=== PATIENT | female | born 1945 ===

== ENCOUNTER → 2024-06-16 14:16 | Outpatient (REF) | payer MEDICARE, OTHER, SELFPAY | LOC: HWRAD 14:16 | PROVIDERS: ATTENDING PHYSICIAN Nurse Practitioner | DX: M25.562 Pain in left knee (principal) | CPT/HCPCS: 73564 ==

== ENCOUNTER 2024-06-20 09:33 | Emergency (ER) | payer MEDICARE, OTHER, SELFPAY ==
[2024-06-20 09:42] VITALS: BP 111/67
[2024-06-20 10:01] VITALS: BMI 28.7
--- NOTE | 2024-06-20 11:21 | ED.MUSCINJ ---
HPI-Injury
General
Chief Complaint: Musculo-Skeletal Complaint
Source: patient
Exam Limitations: none
Time Seen by Provider: 06/20/24 11:06
History of Present Illness-Injury
Initial Injury comments:
78-year-old female presents with progressively worsening left knee pain over the past week to 10 days. She had an x-ray done as an outpatient which demonstrated arthritis and a small effusion. She denies any injury. She denies a fever. She could
not get into an appointment until the end of June. She tried Aleve with minimal relief. She typically does not use a cane or a walker. She is not on any blood thinners. No other complaints at this time.
Phy Exam
Physical Exam
Physical Exam:
General: Well-appearing female no acute respiratory distress
Musculoskeletal exam: Left knee tender medially and posteriorly. There is a small effusion noted on exam able to straight leg raise. She has full extension flexion to about 90 degrees. Knee is stable to ligament exam
Skin is without any wound or erythema
Injury Course
Orders/Labs/Results
Orders:
Orders
06/20/24 12:00
Triamcinolone Acetonide [Kenalog-10] 10 mg INTRAARTIC NOW STA
MDM/Problems Addressed
Differential Diagnosis Includes:
Left knee discomfort. I personally visualized x-rays of the knee that were taken 4 days ago which demonstrate mild to moderate degenerative change with small effusion. I suspect pain is from a flare of her arthritis. Clinical exam not consistent
with septic arthritis. No traumatic injury. There is no fractures noted on x-ray. Patient quite a bit of pain and has appoint with her joint doctor in 5 weeks. Had discussion with patient and family. They requested cortisone injection which I
explained the risks of they were aware but they were still in agreement.
*Critical Care Note
Total Time (30-74mins, 75-104mins- exclusive of procedures): Not Applicable
Update Note
Update Note:
The left knee was sterilely prepped with Betadine anesthetized in a local fashion using 1% lidocaine. The left knee was aspirated and approximately 2 mL of clear fluid was aspirated. The knee then through the same needle was injected with 2 mL of
1% lidocaine, 2 mL of 0.5% Marcaine and 2 mL of Kenalog intra-articular injection. This went in easily without resistance. The wound was dressed with gauze and tape. She will continue anti-inflammatories by mouth at home. Stable for discharge
ED Attending Note
-
Portions of this chart may have been created with voice recognition software.� Occasional wrong word or��sound alike� substitutions may have occurred due to the inherent limitations of voice recognition software.
Discharge Plan
Departure
Patient Disposition: Home (Routine Discharge)
Date of Disposition: 06/20/24
Time of Disposition: 12:36
Patient with high blood pressure during this ER visit?: No
Discharge Problem:
DJD (degenerative joint disease)
Instructions: Muscle and Bone Pain (DC)
Referrals:
Annika Moran CRNP [Family Provider] -
Activity Restrictions/Additional Instructions:
Consider using cane for ambulation. Rest. Continue with Tylenol or ibuprofen for pain. Follow-up with your orthopedic provider as planned.
Interventions
Interventions:
*Risk Screen - Suicide Last Done: 06/20/24 10:05
*General Assessment Last Done: 06/20/24 10:02
*Neglect/Abuse Screening Last Done: 06/20/24 10:02
ED- Fall Risk Assessment Last Done: 06/20/24 10:01
*ED COVID-19 Vaccine History Last Done: 06/20/24 10:01
ED-Musculoskeletal Assessment Last Done: 06/20/24 10:06
Discharge Date and Time
Print Language: IRISH
[2024-06-20] MEDS: KENALOG-10 10 MG INTRAARTIC (12:10)
[2024-06-20 12:48] VITALS: BP 130/98
== END 2024-06-20 12:49 | disposition home or self-care (01) ==
LOC: EMR 09:33
PROVIDERS: EMERGENCY PHYSICIAN Emergency Medicine; FAMILY PHYSICIAN Nurse Practitioner
DX: M19.90 Unspecified osteoarthritis, unspecified site (principal)
CPT/HCPCS: 99283; 20610

== ENCOUNTER 2025-01-11 06:36 | Day surgery (SDC) | payer MEDICARE, OTHER, SELFPAY ==
[2024-12-24 11:29] LABS: Hematocrit 43.7 % (37.0-47.0); Hemoglobin 14.3 g/dL (12.0-16.0); Mean Corp Hgb Conc. 32.7 g/dL (33.0-37.0); Mean Corpuscular Hgb 26.4 pg (27.0-31.0); Mean Corpuscular Volume 80.8 fL (81.0-99.0); Mean Platelet Volume 9.8 fL (7.4-10.4); Platelet Count 302 10^3/uL (130-400); Red Blood Cell Count 5.41 10^6/uL (4.20-5.40); Red Cell Dist. Width 13.5 % (11.5-14.5); White Blood Cell Count 9.6 10^3/uL (4.8-10.8)
[2024-12-24 11:30] LABS: ALT (SGPT) 24 U/L (0-35); AST (SGOT) 30 U/L (14-36); Albumin 4.2 g/dl (3.5-5.0); Alkaline Phosphatase 94 U/L (38-126); Blood Urea Nitrogen 27 mg/dl (7-17); Calcium 10.3 mg/dl (8.4-10.2); Carbon Dioxide 30 mmol/L (22-30); Chloride 94 mmol/L (98-107); Glucose 100 mg/dl (70-99); Sodium 134 mmol/L (135-145); Total Bilirubin 0.7 mg/dl (0.2-1.3); Total Protein 6.9 g/dl (6.3-8.2); eGFR 38.51
[2024-12-24 11:48] LABS: Glycohemoglobin (HgbA1c) 6.1 % (4.0-5.6)
[2024-12-24 14:12] VITALS: BMI 25.5
[2024-12-24 15:38] VITALS: BMI 25.5
--- NOTE | 2024-12-28 12:44 | VNURNOTE ---
Patient is scheduled for an elective L TKA on 01/11/25- she is a same day patient with Dr Hubbard. Spoke with patient prior to surgery. Introduced role of [facility] Liaison. Patient reports that she lives alone in a MULTI story home.
There are 6 steps to enter and a flight of steps to the second floor.
There is a powder room on the order entry representative and her son will be putting a recliner on that level for her. She has a shower chair and rolling walker.
PCP is Dr Jama Banegas.
Discussed [facility] joint protocol and post surgical plans.
Reviewed that she will have [facility] services initially and will then start outpatient PT.
Patient selects [facility] for her home care needs and will go to [facility] for outpatient PT. Date TBD. She will plan to schedule either 01/14 or 01/15. Patient confirms she has a Rx.
Patient is in agreement with plan and states that her son or daughter will be home with her. Advised to bring RW with her the day of surgery. [facility] referral placed in [facility].
Plan: [facility] per [facility] joint protocol 01/11 then outpt PT TBD.
--- NOTE | 2025-01-08 14:20 | PTCARENOTE ---
Patient had preop cardiac clearance- ECG report provide, no tracing available. Reviewed by Dr Davey- no additional interventions required
[2025-01-11] VITALS (32 sets, daily range): BP systolic 57–159; BP diastolic 27–95; PULSE 70; O2SAT 95; BMI 25.5
[2025-01-11] MEDS: MOBIC 15 MG PO (08:12)
[2025-01-11] MEDS: NORMOSOL-R/PLASMALYTE-A 1000 IV (08:12)
[2025-01-11] MEDS: TYLENOL 650 MG PO (08:12)
--- NOTE | 2025-01-11 12:49 | SUR.PHASEI ---
Patient arrival to PACU w/BP's <[address] Zabala to bedside to assess. OK with return to [facility] with BP<80's. Pre-Op BP noted to be 81/42
[2025-01-11] MEDS: ANCEF 5 IV (14:35)
[2025-01-11] MEDS: TYLENOL 1000 MG PO (14:36)
[2025-01-11] MEDS: ROXICODONE 5 MG PO (16:15)
== END 2025-01-11 17:10 | disposition home health service (06) ==
LOC: SDS 06:36
PROVIDERS: ATTENDING PHYSICIAN Specialist
DX: M17.12 Unilateral primary osteoarthritis, left knee (principal); M81.0 Age-related osteoporosis without current pathological fracture; N18.32 Chronic kidney disease, stage 3b; C73 Malignant neoplasm of thyroid gland; R73.03 Prediabetes
CPT/HCPCS: 27447; 36415; 73560; 80053; 83036; 85027; 87070; 97116; 97162; C1713; C1776

== ENCOUNTER → 2025-05-18 09:02 | Outpatient (REF) | payer MEDICARE, OTHER, SELFPAY | LOC: HWRAD 09:02 | DX: J20.9 Acute bronchitis, unspecified (principal); R05.3 Chronic cough | CPT/HCPCS: 71046 ==